=== PATIENT | male | born 1985 | race Caucasian/White ===

== ENCOUNTER 2022-07-11 19:48 | Emergency (ER) | payer BC ==
[2022-07-11] MEDS ORDERED: Lidocaine 1% (PF) 30 ML VIAL ONE (20:29)
[2022-07-11] MEDS ORDERED: Boostrix 0.5 ML (Tdap) VIAL (>/=7 yrs of age) ONE (21:08)
== END 2022-07-11 21:29 | disposition home or self-care (01) ==
LOC: CSHERS 19:48
DX: S61.012A Laceration without foreign body of left thumb without damage to nail, initial encounter (principal); E03.9 Hypothyroidism, unspecified; Z23 Encounter for immunization; W26.0XXA Contact with knife, initial encounter
CPT/HCPCS: 12001; 90471; 90715; J2001

== ENCOUNTER 2023-08-20 22:48 | Emergency (ER) | payer BC ==
[2023-08-20 23:55] LABS: #Eosinphils 0.1 10x3/uL (0.0-0.5); #Monocytes 0.5 10x3/uL (0.0-1.1); #Neutrophils 3.1 10x3/uL (1.5-8.4); %Basophils 0.6 % (0.0-2.0); %Eosinophils 2.4 % (0.0-6.0); %Lymphocytes 30.2 % (18.0-47.0); %Monocytes 9.1 % (0.0-10.0); %Neutrophils 57.5 % (40.0-75.0); Hematocrit 36.2 % (38.8-50.0); Hemoglobin 13.1 g/dL (13.5-17.5); Mean Corpuscular HGB CONC 36.2 g/dL (32.0-36.0); Mean Corpuscular Hemoglobin 30.5 pg (27.0-33.0); Mean Corpuscular Volume 84.2 fl (81.2-95.1); Mean Platelet Volume 9.5 fl (7.4-10.4); Platelet Count 180 10x3/uL (150-450); RBC Distribution Width 12.4 % (11.5-14.5); White Blood Cell (WBC) Count 5.4 10x3/uL (3.5-10.5)
[2023-08-20 23:57] LABS: Bilirubin Neg (Negative); Blood, Urine 150 (Negative); Clarity Clear (Clear); Glucose, Urine (Dipstick) Normal (Negative); Ketone, Urine Negative (Negative); Leukocyte Negative (Negative); Nitrite Negative (Negative); Protein, Urine (Dipstick) 15 mg/dl (Neg-Trace); Urobilinogen Normal mg/dL (Less than 2)
[2023-08-21 00:11] LABS: ALT (SGPT) 136 U/L (8-55); AST (SGOT) 424 U/L (5-34); Albumin 4.5 g/dL (3.5-5.0); Alkaline Phosphatase 32 U/L (40-110); Anion Gap 13 mmol/L (10-20); BUN (Urea Nitrogen) 16 mg/dL (8.9-20.6); Bilirubin, Total 0.5 mg/dL (0.2-1.2); Calc. Creatinine Clearance 0 mL/min (70-130); Calcium 9.1 mg/dL (7.8-10.44); Carbon Dioxide 23 mmol/L (22-29); Chloride 109 mmol/L (98-107); Estimated GFR 61; Globulin 1.5 g/dL (2.4-3.5); Glucose 102 mg/dL (70-105); Lipase 19 U/L (8-78); Potassium 3.6 mmol/L (3.5-5.1); Sodium 141 mmol/L (136-145)
[2023-08-21 00:18] LABS: Bacteria/HPF None Seen HPF (None Seen); CAUTI Indications for Culture Alt mental st,lethar; Squamous Epithelial 0-3 HPF (0-3); Urine Culture Reflex No No; WBC/HPF None Seen HPF (0-3)
[2023-08-21] MEDS ORDERED: Ketorolac Tromethamine 30 MG (1 mL) VIAL ONE (00:32)
[2023-08-21] MEDS ORDERED: Ondansetron PF 4 MG/2 ML Vial ONE (00:32)
[2023-08-21 01:19] LABS: Free T4 (Free Thyroxine) 0.9 ng/dL (0.70-1.48)
== END 2023-08-21 02:05 | disposition home or self-care (01) ==
LOC: CSHERS 22:48
DX: R63.4 Abnormal weight loss (principal); M67.431 Ganglion, right wrist; M54.50 Low back pain, unspecified; R53.1 Weakness; F17.290 Nicotine dependence, other tobacco product, uncomplicated; E03.9 Hypothyroidism, unspecified; Z79.899 Other long term (current) drug therapy
CPT/HCPCS: 36415; 70450; 71260; 74177; 80053; 81001; 83690; 84439; 84443; 84481; 85025; 93005; 96374; 96375; J1885; J2405

== ENCOUNTER 2024-07-18 16:07 | Outpatient (CLI) | payer BC | END 2024-07-18 16:08 | disposition home or self-care (01) | LOC: CSHRAD 16:07 | PROVIDERS: ATTEND Family Medicine Sports Medicine | DX: M54.50 Low back pain, unspecified (principal); M47.816 Spondylosis without myelopathy or radiculopathy, lumbar region; N20.0 Calculus of kidney | CPT/HCPCS: 72100 ==